=== PATIENT | female | born 1980 | race Caucasian/White ===

== ENCOUNTER → 2016-05-11 | Outpatient (CLI) | payer BC ==
--- NOTE | 2016-05-11 13:02 | KCIC ---
PROCEDURE Two-view chest. HISTORY Chest pain x6 - 8 months. Worse with breathing. COMPARISON No comparison. FINDINGS The cardiomediastinal silhouette is normal. Lungs are clear. No pleural effusion or pneumothorax. No acute bone abnormality. IMPRESSION No acute cardiopulmonary process. Electronically signed by: Drew Gorman MD (May 11, 2016 13:00:52)
== END | disposition home or self-care (01) ==
LOC: KCIC 11:39
PROVIDERS: ATTEND Nurse Practitioner Family
DX: R07.9 Chest pain, unspecified (principal)
CPT/HCPCS: 71020